=== PATIENT | female | born 1960 | race Caucasian/White ===

== ENCOUNTER 2017-08-29 09:41 | Outpatient (CLI) | payer BC ==
--- NOTE | 2017-08-29 14:22 | MMO ---
BILATERAL SCREENING MAMMOGRAM: INDICATION: Annual exam. COMPARISON: Prior exam dated 04/14/15. FINDINGS: The interpretation of this exam was assisted with computer-aided detection. The breast parenchyma is heterogeneously dense which limit the sensitivity of mammography. There are benign-appearing calcifications bilaterally. No new suspicious mass, cluster of microcalcifications, or area of architectural distortion is eviden t. IMPRESSION: BI-RADS category 2 - benign. Recommend routine annual mammographic screening. POS: [facility]
== END 2017-08-29 09:42 | disposition home or self-care (01) ==
LOC: SCSMAMMO 09:41
PROVIDERS: ATTEND Family Medicine
DX: Z12.31 Encounter for screening mammogram for malignant neoplasm of breast (principal)
CPT/HCPCS: 77067; G0202

== ENCOUNTER 2018-09-10 08:18 | Outpatient (CLI) | payer BC | END 2018-09-10 08:19 | disposition home or self-care (01) | LOC: BICMAMMO 08:18 | PROVIDERS: ATTEND Family Medicine | DX: Z12.31 Encounter for screening mammogram for malignant neoplasm of breast (principal); R92.1 Mammographic calcification found on diagnostic imaging of breast; Z80.3 Family history of malignant neoplasm of breast | CPT/HCPCS: 77066; G0279 ==

== ENCOUNTER 2019-09-13 07:48 | Outpatient (CLI) | payer BC ==
--- NOTE | 2019-09-13 08:57 | MMO ---
Bilateral MAMMO Bilat Screen [facility]. CLINICAL HISTORY: Patient is 59 years old and is seen for screening. The patient has no family history of breast cancer. The patient has no personal history of cancer. VIEWS: The views performed were: bilateral craniocaudal with tomosynthesis and bilateral mediolateral oblique with tomosynthesis. FILMS COMPARED: The present examination has been compared to a prior imaging study performed at [facility] on 09/10/2018. This study has been interpreted with the assistance of computer-aided detection. MAMMOGRAM FINDINGS: There are scattered fibroglandular densities. There are benign appearing calcifications seen in both breasts. There are no suspicious masses, suspicious calcifications, or new areas of architectural distortion. IMPRESSION: THERE IS NO MAMMOGRAPHIC EVIDENCE OF MALIGNANCY. A ROUTINE FOLLOW-UP MAMMOGRAM IN 1 YEAR IS RECOMMENDED. THE RESULTS OF THIS EXAM WERE SENT TO THE PATIENT. ACR BI-RADS Category 2 - Benign finding MAMMOGRAPHY NOTE: 1. A negative mammogram report should not delay a biopsy if a dominant of clinically suspicious mass is present. 2. Approximately 10% to 15% of breast cancers are not detected by mammography. 3. Adenosis and dense breasts may obscure an underlying neoplasm. Reported by: AURELIANO DELANEY MD Electonically Signed: [id number]
--- NOTE | 2019-09-13 09:53 | BD ---
DEXA BONE DENSITY STUDY: HISTORY: Osteoporosis screening. Asymptomatic menopausal state. COMPARISON: None. FINDINGS: LUMBAR SPINE BMD (g/cm2) T-SCORE Z-SCORE L1 1.063 0.7 2.0 L2 1.053 0.2 1.7 L3 1.300 2.0 3.5 L4 1.493 3.9 5.6 TOTAL 1.235 1.7 3.2 FEMORAL NECK 0.687 -1.5 -0.1 TOTAL LEFT HIP 0.821 -1.0 0.0 TEN YEAR FRACTURE RISK: Major osteoporotic fracture: 8.3% Hip fracture: 1.2% IMPRESSION: Osteopenia with fracture risk as above. POS: [facility]
== END 2019-09-13 07:49 | disposition home or self-care (01) ==
LOC: BICMAMMO 07:48
PROVIDERS: ATTEND Family Medicine
DX: Z12.31 Encounter for screening mammogram for malignant neoplasm of breast (principal); Z13.820 Encounter for screening for osteoporosis; Z78.0 Asymptomatic menopausal state; M85.89 Other specified disorders of bone density and structure, multiple sites
CPT/HCPCS: 77063; 77067; 77080

== ENCOUNTER 2019-09-13 08:49 | Outpatient (CLI) | payer BC ==
--- NOTE | 2019-09-13 09:45 | CT ---
CT Pulmonary Lung Scan HISTORY: Current smoker of approximately 30 years. Smokes a half to hold pack per day. COMPARISON: None. FINDINGS: The lungs are clear of any infiltrative process. There are no pulmonary nodules or pleural effusions identified. Coronary calcifications are present. No significant mediastinal adenopathy is appreciated. Hypodensities within the liver statistically most likely cysts. IMPRESSION: 1. Lung RADS category 1-negative annual screening exam is recommended. 2. Lung RADS category S-this is given for the presence of coronary calcifications.
== END 2019-09-13 08:50 | disposition home or self-care (01) ==
LOC: CT 08:49
PROVIDERS: ATTEND Family Medicine
DX: F17.210 Nicotine dependence, cigarettes, uncomplicated (principal); I25.10 Atherosclerotic heart disease of native coronary artery without angina pectoris
CPT/HCPCS: G0297

== ENCOUNTER 2020-12-08 07:56 | Outpatient (CLI) | payer BC | END 2020-12-08 07:57 | disposition home or self-care (01) | LOC: BICCT 07:56 | PROVIDERS: ATTEND Family Medicine | DX: Z12.2 Encounter for screening for malignant neoplasm of respiratory organs (principal); F17.210 Nicotine dependence, cigarettes, uncomplicated; I70.90 Unspecified atherosclerosis | CPT/HCPCS: 71271 ==

== ENCOUNTER 2020-12-08 08:23 | Outpatient (CLI) | payer BC | END 2020-12-08 08:24 | disposition home or self-care (01) | LOC: BICMAMMO 08:23 | PROVIDERS: ATTEND Family Medicine | DX: Z12.31 Encounter for screening mammogram for malignant neoplasm of breast (principal) | CPT/HCPCS: 77063; 77067 ==

== ENCOUNTER 2021-12-14 08:02 | Outpatient (CLI) | payer BC | END 2021-12-14 08:03 | disposition home or self-care (01) | LOC: BICMAMMO 08:02 | PROVIDERS: ATTEND Family Medicine | DX: Z12.31 Encounter for screening mammogram for malignant neoplasm of breast (principal); Z12.2 Encounter for screening for malignant neoplasm of respiratory organs; F17.210 Nicotine dependence, cigarettes, uncomplicated; J21.9 Acute bronchiolitis, unspecified; Z80.3 Family history of malignant neoplasm of breast | CPT/HCPCS: 71271; 77063; 77067 ==

== ENCOUNTER 2022-11-25 08:49 | Outpatient (CLI) | payer BC | END 2022-11-25 08:50 | disposition home or self-care (01) | LOC: SCSRAD 08:49 | PROVIDERS: ATTEND Family Medicine | DX: M54.50 Low back pain, unspecified (principal); M47.816 Spondylosis without myelopathy or radiculopathy, lumbar region; M41.86 Other forms of scoliosis, lumbar region | CPT/HCPCS: 72110 ==

== ENCOUNTER 2023-01-17 07:45 | Outpatient (CLI) | payer BC | END 2023-01-17 07:46 | disposition home or self-care (01) | LOC: BICMAMMO 07:45 → CT 07:46 | PROVIDERS: ATTEND Family Medicine | DX: Z12.31 Encounter for screening mammogram for malignant neoplasm of breast (principal); Z12.2 Encounter for screening for malignant neoplasm of respiratory organs; F17.200 Nicotine dependence, unspecified, uncomplicated; N64.89 Other specified disorders of breast; Z80.3 Family history of malignant neoplasm of breast | CPT/HCPCS: 71271; 77063; 77067 ==

== ENCOUNTER 2023-01-31 08:51 | Outpatient (CLI) | payer BC | END 2023-01-31 08:52 | disposition home or self-care (01) | LOC: BICMAMMO 08:51 | PROVIDERS: ATTEND Family Medicine | DX: N64.89 Other specified disorders of breast (principal) | CPT/HCPCS: G0279 ==